=== PATIENT | male | born 1995 | race Asian ===

== ENCOUNTER 2023-11-01 15:20 | Emergency (ER) | payer MEDICAID ==
[~2023-11-01] VITALS: Ht 180.3 cm; Wt 68.0 kg
[2023-11-01 16:28] VITALS: BP 127/76; TEMP 98.2; O2SAT 97
[2023-11-01] MEDS ORDERED: CEPH500C2 PO (16:42)
== END 2023-11-01 16:54 | disposition home or self-care (01) ==
LOC: ER 15:26
DX: S01.111D Laceration without foreign body of right eyelid and periocular area, subsequent encounter (principal); Y04.0XXD Assault by unarmed brawl or fight, subsequent encounter